=== PATIENT | female | born 1960 | race Two or more races ===

== ENCOUNTER 2024-02-12 09:11 | Outpatient (CLI) | payer OTHER ==
[~2024-02-12 09:11] MED LIST: ANASTROZOLE1 MG PO; CEFTIN500 MG PO; COZAAR100 MG PO; GILPHEX TR TAB1 EACH PO; HORIZANT300 MG PO; KEPPRA500 MG PO; KETO10TA2 PO; NASONEX17 GM NS; ROBAXIN500 MG PO; SYNTHROID88 MCG PO
== END 2024-02-12 09:13 | disposition home or self-care (01) ==
LOC: SONOGRAMA 09:11
PROVIDERS: ATTEND Pathology Anatomic Pathology
DX: D34 Benign neoplasm of thyroid gland (principal); E06.3 Autoimmune thyroiditis; E04.1 Nontoxic single thyroid nodule